=== PATIENT | female | born 2000 | race Caucasian/White ===

== ENCOUNTER 2023-11-25 15:50 | Inpatient (IN) | payer OTHER, SELFPAY ==
[2023-11-25] VITALS (13 sets, daily range): BP systolic 116–152; BP diastolic 66–94; PULSE 79–91; RESP 18; TEMP 36.6–36.8; BMI 39.1
[2023-11-25 16:52] LABS: Basophils Percent Auto 0.3 % (0.2-1.2); Eosinophils Absolute Auto 0.1 K/mm3 (0-0.3); Eosinophils Percent Auto 0.6 % (0-4.4); Hematocrit 32.1 % (37.0-47.0); Hemoglobin 10.4 g/dL (12.0-15.0); Immature Granulocyte Absolute 0.06 K/mm3 (0.00-0.031); Immature Granulocyte Percent A 0.5 % (0-0.5); Lymphocytes Absolute Auto 1.83 K/mm3 (0.9-3.2); Lymphocytes Percent Auto 14.5 % (18.3-44.2); Mean Corpuscular HGB Conc 32.4 g/dl (32-36); Mean Corpuscular Volume 89.4 fl (80-100); Monocytes Absolute Auto 0.6 K/mm3 (0.1-0.6); Monocytes Percent Auto 4.9 % (2.6-8.5); Neutrophils Percent Auto 79.2 % (45.5-73.1); Platelet Count Result 217 k/mm3 (150-375); Red Blood Count 3.59 M/mm3 (4.2-5.4); Red Cell Distribution Width 13.1 % (11.5-14.5); White Blood Count 12.6 K/mm3 (4.5-10.0)
--- NOTE | 2023-11-25 16:53 | LDADM ---
This patient, Tejal Acevedo, was admitted to Labor/Delivery/Recovery 108 on 11/25/23 at 15:50. Plans for labor, pain management and were discussed with patient. Patient/family oriented to hospital policies and general routines including ID bracelet, bed and alarms, visiting hours, pain management, procedures, bathroom and other care routines, personal items, smoking policy, room service/diet and guest tray routines, infant security routines, and visiting hours. Patient/Family are encouraged to report perceived risks to care and to ask questions if they do not understand what they are told or what they should do. See OBIX for further documentation.
[2023-11-25] MEDS: DINOPROSTONE 10 MG VAG INSERT VAGINAL (17:13)
[2023-11-25 17:49] LABS: HIV 1/2 Ab P24 Ag Result Negative (Negative)
[2023-11-25 18:22] LABS: Rapid Plasma Reagin Non-Reactive (NonReactive)
--- NOTE | 2023-11-25 19:44 | WPDANESEPP ---
Anes - Eval Pre Procedure Procedure: Labor Epidural Date/Time: 11/25/23 19:44 Surgeon: Vanessa Preop Diagnosis: Labor Pain Pre Op Diagnosis: Induction of Labor Patient Data Age: 23 Gender: F Height: 1.68 m Weight: 110 kg Last Vital Signs Temp 36.6 C 11/25/23 17:00 Pulse 81 11/25/23 19:30 Resp 18 11/25/23 17:00 BP 116/94 H 11/25/23 19:30 O2 Del Method Room Air 11/25/23 16:52 Allergies Allergy/AdvReac Type Severity Reaction Status Date / Time No Known Allergies Allergy Verified 11/18/23 15:33 Home Medications Medication Instructions Recorded Confirmed Type vits no.126-ferrous fum 1 tablet PO DAILY 11/18/23 11/18/23 History 28 mg iron-folic acid 800 mcg tablet (Classic ) Laboratory Tests 11/25/23 16:24 WBC 12.6 H K/mm3 (4.5-10.0) RBC 3.59 L M/mm3 (4.2-5.4) Hgb 10.4 L g/dL (12.0-15.0) Hct 32.1 L % (37.0-47.0) MCV 89.4 fl (80-100) MCH 29.0 pg (26-34) MCHC 32.4 g/dl (32-36) RDW 13.1 % (11.5-14.5) Plt Count 217 k/mm3 (150-375) MPV 10.0 fl (7.4-10.4) Immature Gran % (Auto) 0.5 % (0-0.5) Neut % (Auto) 79.2 H % (45.5-73.1) Lymph % (Auto) 14.5 L % (18.3-44.2) [place] % (Auto) 4.9 % (2.6-8.5) Eos % (Auto) 0.6 % (0-4.4) Baso % (Auto) 0.3 % (0.2-1.2) Lymph # (Auto) 1.83 K/mm3 (0.9-3.2) [place] # (Auto) 0.6 K/mm3 (0.1-0.6) Eos # (Auto) 0.1 K/mm3 (0-0.3) Baso # (Auto) 0.0 K/mm3 (0.0-0.1) Abs Immat Gran (auto) 0.06 H K/mm3 (0.00-0.031) Absolute Neuts (auto) 10.0 H K/mm3 (1.3-6.7) Absolute Nucleated RBC 0.000 K/mm3 (0.0-0.012) Nucleated RBC % 0.0 % (0.0-0.2) RPR Non-reactive (NonReactive) HIV 1&2 Ab/P24 Ag 4thGn Negative (Negative) Blood Type O Positive Antibody Screen Negative : gestational age (TORO 12/16/23, ) Patient hx anesthesia problems: none Family hx anesthesia problems: none Results Review: All pre-operative results and documents have been reviewed as part of the pre-operative evaluation. [facility] Family History Family History Other No pertinent family history No pertinent past psychiatric history Social History Social History Smoking status: Never smoker Substance use: never Do You Feel Safe in your Home?: Yes Lack of Transportation: No Lack of Food: Never True Current Housing: I Have Housing Concerned About Future Housing: No Difficulty Paying Gas/Electric Bills: No Difficulty Paying for Meds: No Currently Unemployed: No Education: Trade/Vocational Certificate Difficulty w/ Childcare or Family Care: No Spiritual care concerns: No Exam Day of Procedure 11/25/23 19:44 Patient weight: normal Heart: regular rate and rhythm Lungs: normal air movement Airway: Mallampati scale class II Neurological: alert and oriented
[2023-11-26] VITALS (150 sets, daily range): BP systolic 91–145; BP diastolic 40–112; PULSE 63–296; RESP 18–20; TEMP 36.5–37.5; O2SAT 93–100
--- NOTE | 2023-11-26 00:03 | PM.IMHP ---
H&P: HPI History of Present Illness Date/Time: 11/26/23 00:03 Chief Complaint: Growth restriction an oligo hydramnios at 37 weeks Narrative: 23-year-old para 0 last menstrual period was 01/29/2023, EDC the 2023, confirmed by 8 week ultrasound presents at 37 weeks gestation secondary to low fluid and decreased growth. The patient had a routine 37 week 2 ultrasound which showed baby to be less than 10th percentile with oligohydramnios. Her fundal heights have been showing good growth of this with this was apprised. In later of these finding she is admitted for induction of labor. Group B strep screen was done today and assess pending and she will be treated prophylactically PMFSH Family History Family History Other No pertinent family history No pertinent past psychiatric history Social History Social History Smoking status: Never smoker Substance use: never Do You Feel Safe in your Home?: Yes Lack of Transportation: No Lack of Food: Never True Current Housing: I Have Housing Concerned About Future Housing: No Difficulty Paying Gas/Electric Bills: No Difficulty Paying for Meds: No Currently Unemployed: No Education: Trade/Vocational Certificate Difficulty w/ Childcare or Family Care: No Spiritual care concerns: No Meds Home Medications and Allergies Home Medications Medication Instructions Recorded Confirmed Type vits no.126-ferrous fum 1 tablet PO DAILY 11/18/23 11/18/23 History 28 mg iron-folic acid 800 mcg tablet (Classic ) Allergies Allergy/AdvReac Type Severity Reaction Status Date / Time No Known Allergies Allergy Verified 11/18/23 15:33 Vital Signs Vital Signs - 24 hr 11/25/23 16:52 11/25/23 16:58 11/25/23 17:32 Temperature Pulse Rate 91 89 Respiratory Rate Blood Pressure 142/79 H 129/68 Oxygen Delivery Room Air 11/25/23 17:45 11/25/23 17:00 11/25/23 18:00 Temperature 98 F Pulse Rate 81 87 Respiratory Rate 18 Blood Pressure 130/71 140/71 Oxygen Delivery 11/25/23 18:15 11/25/23 18:30 11/25/23 18:45 Temperature Pulse Rate 88 85 90 Respiratory Rate Blood Pressure 131/66 135/76 137/72 Oxygen Delivery 11/25/23 19:00 11/25/23 19:15 11/25/23 19:30 Temperature Pulse Rate 83 79 81 Respiratory Rate Blood Pressure 133/79 152/75 H 116/94 H Oxygen Delivery 11/25/23 19:45 11/25/23 20:00 Temperature 98.3 F Pulse Rate 83 Respiratory Rate Blood Pressure 130/73 Oxygen Delivery Exam Const: General: cooperative, healthy appearing and comfortable Nutritional Appearance: overweight Orientation/consciousness: oriented to person, oriented to place and oriented to time Resp: Effort & Inspection: normal respiratory effort Cardio: Rate: regular rate Rhythm: regular rhythm Heart sounds: S1 normal heart sound present and S2 normal heart sound present GI: Inspection: normal to inspection ( soft gravid uterus) : External Female Exam: normal external appearance Speculum Exam - Vagina: normal appearance of the vagina Speculum Exam - Cervix: normal appearance of the cervix H&P: Results Labs Labs: Short CBC 11/25/23 Range/Units 16:24 WBC 12.6 H (4.5-10.0) K/mm3 Hgb 10.4 L (12.0-15.0) g/dL Hct 32.1 L (37.0-47.0) % Plt Count 217 (150-375) k/mm3 Assessment and Plan Assessment and plan (1) Term : Code(s): Z34.90 - Encounter for supervision of normal , unspecified, unspecified trimester Status: Acute (2) IUGR (intrauterine growth restriction): Status: Acute (3) Oligohydramnios: Code(s): O41.00X0 - Oligohydramnios, unspecified trimester, not applicable or unspecified Status: Acute Assessment and Plan: induction of labor. Spontaneous vaginal delivery expected.
[2023-11-26] MEDS: LACTATED RINGERS 1,000 ML 125 ML IV CONT ×3 (05:11→14:29)
[2023-11-26] MEDS: OXYTOCIN 30 UNITS/NS 500 ML 30 UNITS/500 ML BAG 6 UNITS IV CONT (05:11)
--- NOTE | 2023-11-26 06:10 | PM.OBPNLAB ---
Pain Control Date/time seen: 11/26/23 06:10 Pain control: tolerating well Pelvic Exam Dilation (cm): 2 Effacement (%): 50 station: -2 Amniotic membrane status: Leaking Contractions Monitor mode: External Contraction frequency: 3
--- NOTE | 2023-11-26 11:00 | WPDANESEPP ---
Anes - Eval Pre Procedure Procedure: Labor epidural Date/Time: 11/26/23 11:00 Surgeon: Dyana Martinez Preop Diagnosis: Pain during labor Pre Op Diagnosis: Induction of Labor Patient Data Age: 23 Gender: F Height: 1.68 m Weight: 110 kg Last Vital Signs Temp 36.9 C 11/26/23 04:34 Pulse 80 11/26/23 10:46 Resp 18 11/25/23 17:00 BP 132/70 11/26/23 10:46 O2 Del Method Room Air 11/25/23 16:52 Allergies Allergy/AdvReac Type Severity Reaction Status Date / Time No Known Allergies Allergy Verified 11/18/23 15:33 Home Medications Medication Instructions Recorded Confirmed Type vits no.126-ferrous fum 1 tablet PO DAILY 11/18/23 11/18/23 History 28 mg iron-folic acid 800 mcg tablet (Classic ) Laboratory Tests 11/25/23 16:24 WBC 12.6 H K/mm3 (4.5-10.0) RBC 3.59 L M/mm3 (4.2-5.4) Hgb 10.4 L g/dL (12.0-15.0) Hct 32.1 L % (37.0-47.0) MCV 89.4 fl (80-100) MCH 29.0 pg (26-34) MCHC 32.4 g/dl (32-36) RDW 13.1 % (11.5-14.5) Plt Count 217 k/mm3 (150-375) MPV 10.0 fl (7.4-10.4) Immature Gran % (Auto) 0.5 % (0-0.5) Neut % (Auto) 79.2 H % (45.5-73.1) Lymph % (Auto) 14.5 L % (18.3-44.2) [place] % (Auto) 4.9 % (2.6-8.5) Eos % (Auto) 0.6 % (0-4.4) Baso % (Auto) 0.3 % (0.2-1.2) Lymph # (Auto) 1.83 K/mm3 (0.9-3.2) [place] # (Auto) 0.6 K/mm3 (0.1-0.6) Eos # (Auto) 0.1 K/mm3 (0-0.3) Baso # (Auto) 0.0 K/mm3 (0.0-0.1) Abs Immat Gran (auto) 0.06 H K/mm3 (0.00-0.031) Absolute Neuts (auto) 10.0 H K/mm3 (1.3-6.7) Absolute Nucleated RBC 0.000 K/mm3 (0.0-0.012) Nucleated RBC % 0.0 % (0.0-0.2) RPR Non-reactive (NonReactive) HIV 1&2 Ab/P24 Ag 4thGn Negative (Negative) Blood Type O Positive Antibody Screen Negative : gestational age (TORO 12/16/23, ) Patient hx anesthesia problems: none Family hx anesthesia problems: none Results Review: All pre-operative results and documents have been reviewed as part of the pre-operative evaluation. [facility] Family History Family History Other No pertinent family history No pertinent past psychiatric history Social History Social History Smoking status: Never smoker Substance use: never Do You Feel Safe in your Home?: Yes Lack of Transportation: No Lack of Food: Never True Current Housing: I Have Housing Concerned About Future Housing: No Difficulty Paying Gas/Electric Bills: No Difficulty Paying for Meds: No Currently Unemployed: No Education: Trade/Vocational Certificate Difficulty w/ Childcare or Family Care: No Spiritual care concerns: No Exam Day of Procedure 11/26/23 11:00 Patient weight: obese Heart: regular rate and rhythm Lungs: clear to auscultation Airway: Mallampati scale Neurological: alert and oriented
--- NOTE | 2023-11-26 11:52 | PM.OBPNLAB ---
Pain Control Date/time seen: 11/26/23 11:52 Pain control: tolerating well Pelvic Exam Dilation (cm): 3 Effacement (%): 70 station: -2 Amniotic membrane status: Leaking Contractions Monitor mode: External Contraction frequency: 3
[2023-11-26] MEDS: SODIUM CHLORIDE 0.9% IV 300 ML 600 ML I-UTERINE (16:46)
--- NOTE | 2023-11-26 17:37 | P.PCNOB_ITS ---
OB - Vaginal Delivery Note Procedure Delivery date: 11/26/23 Events: Intrauterine Growth Restriction (IUGR) and Oligohydramnios Induction method: Per Cervidil Protocol Delivery augmentation: Rupture of Membranes and Pitocin Delivery monitor: External FHT, External Uterine, Internal FHT and Internal Uterine Route of delivery: Episiotomy description: None Laceration Description: None Quantitative Blood Loss (ml): 61 Anesthesia type: Epidural Disposition: Floor Complications: No immediate complications Narrative: Patient was admitted on 11/25 23. Cervidil was placed and she is spontaneously delivered on 11/26/2023. And she was complete she pushed delivered the head spontaneously in the ARABELLA position. Anterior posterior shoulder delivered spontaneously. Cord clamped x2 cut. placed warmer given Apgars of 7 [id number] made 5minutes. Cord blood was drawn. Placenta delivered intact spontaneously. Twenty of Pitocin placed IV to help firm the uterus. The lateral sidewalls and perineum appeared intact. Blood loss was estimated at61cc. There were no complications and pediatricians were on-site [place] Baby Date of : 11/26/23 Time of : 17:19 Gestational Age by Date: 37 Infant gender: Female presentation: vertex position: Right Occiput Anterior Placenta delivery description: Spontaneous Cord Vessel Description: 3 Vessels, Nuchal Cord, Loose and Reduced score one minute: 7 score five minutes: 9
--- NOTE | 2023-11-26 17:39 | PM.DS ---
DS: Admitting Diagnosis Discharge Date 11/28/2023 Admitting Diagnosis IUGR and oligohydramnios at 37 weeks DS: Discharge Diagnosis Discharge Diagnosis (1) Oligohydramnios: Code(s): O41.00X0 - Oligohydramnios, unspecified trimester, not applicable or unspecified Status: Acute (2) IUGR (intrauterine growth restriction): Status: Acute (3) Term : Code(s): Z34.90 - Encounter for supervision of normal , unspecified, unspecified trimester Status: Acute DS: Summary Hospital Course Reason for hospitalization: this 23-year-old female was admitted for induction of labor at 37 weeks secondary to oligohydramnios and IUGR Hospital Course: patient underwent spontaneous vaginal delivery on 11/25/2024 at 5:19 p.m.. She remained afebrile. She was up, voiding without difficulty, eating regular diet, ambulating, and generally without complaints. Time Spent with Patient Time attestation: Total time spent providing and/or coordinating discharge services: Exam Const: General: cooperative, healthy appearing and comfortable Nutritional Appearance: average body habitus Orientation/consciousness: oriented to person, oriented to place and oriented to time Resp: Effort & Inspection: normal respiratory effort Cardio: Rate: regular rate Rhythm: regular rhythm Heart sounds: S1 normal heart sound present and S2 normal heart sound present GI: Inspection: normal to inspection DS: Data Data Completed and Pending Labs on day of discharge: Labs from last 24 hours 11/25/23 16:24 RPR Non-reactive HIV 1&2 Ab/P24 Ag 4thGn Negative Blood Type O Positive Antibody Screen Negative Discharge Plan Discharge Attending physician on discharge: Derrell Altamirano Discharging Clinician: Derrell Altamirano Patient Disposition: Home, Self-Care Activity: may shower and pelvic rest Diet: heart healthy Wound Care Instructions: follow printed instructions Patient Instructions: Antibiotic Form Stand Alone Forms: General Discharge Information Follow-up/Referrals: Derrell Altamirano MD [Physician] - Discharge Medications: Continued Classic 28 mg iron- 800 mcg Tablet 1 tablet PO DAILY Date of admission: 11/25/23 15:50 Primary Care Provider: Bk Hewitt Admitting Provider: Derrell Altamirano Attending physician on admission: Derrell Altamirano Condition: Stable
[2023-11-26] MEDS: OXYTOCIN 30 UNITS/NS 500 ML 30 UNITS/500 ML BAG 125 UNITS IV CONT (17:41)
--- NOTE | 2023-11-27 04:45 | PM.OBPNVD ---
OB - PN: Subj Subjective Date/time seen: 11/27/23 04:45 Patient comments: no complaints and pain well controlled baby status: doing well OB - PN: Obj Data Labs 11/25/23 16:24 OB - PN A/P Plan day: 1 Plan: routine care Time Spent With Patient Time: Total time spent is greater than 50% in coordination of care (as documented) at patient's floor/unit and/or counseling patient: Time with patient: less than 15 minutes Exam Const: General: cooperative, healthy appearing and comfortable Nutritional Appearance: average body habitus Orientation/consciousness: oriented to person, oriented to place and oriented to time Resp: Effort & Inspection: normal respiratory effort Cardio: Rate: regular rate Rhythm: regular rhythm Heart sounds: S1 normal heart sound present and S2 normal heart sound present GI: Inspection: normal to inspection
[2023-11-27 05:25] LABS: Hematocrit 37.8 % (37.0-47.0); Hemoglobin 12.1 g/dL (12.0-15.0)
[2023-11-27] MEDS: MULTIVIT/MIN/PREN/FOL AC/IRON TABLET 1 TAB PO (07:03)
[2023-11-27 08:40] VITALS: BP 124/65; PULSE 84; RESP 18; TEMP 36.6; O2SAT 100
[2023-11-27 12:12] VITALS: BP 124/66; PULSE 78; RESP 16; TEMP 36.8; O2SAT 100
--- NOTE | 2023-11-27 12:55 | WPDANLDPN2 ---
Anes-Prog Note L&D Date/Time: 11/27/23 12:55 Neuro status: Neuro function grossly intact. Vital Signs: Last Vital Signs Temp 36.8 C 11/27/23 12:12 Pulse 78 11/27/23 12:12 Resp 16 11/27/23 12:12 BP 124/66 11/27/23 12:12 Pulse Ox 100 11/27/23 12:12 O2 Del Method Room Air 11/25/23 16:52 Pain score (VAS): 0 I/O: Intake & Output 11/26/23 11/27/23 11/27/23 23:59 07:59 15:59 Intake Total 500 Output Total 61 Balance 439 Patient feedback: Patient satisfied with anesthetic care.
[2023-11-27 19:05] VITALS: BP 125/71; PULSE 90; RESP 18; TEMP 36.9; O2SAT 100
--- NOTE | 2023-11-28 05:31 | PM.OBPNVD ---
OB - PN: Subj Subjective Date/time seen: 11/28/23 05:31 Patient comments: no complaints and pain well controlled baby status: doing well OB - PN: Obj Data Labs 11/27/23 03:38 OB - PN A/P Plan day: 1 Plan: routine care Time Spent With Patient Time: Total time spent is greater than 50% in coordination of care (as documented) at patient's floor/unit and/or counseling patient: Time with patient: less than 15 minutes Exam Const: General: cooperative, healthy appearing and comfortable Orientation/consciousness: oriented to person, oriented to place and oriented to time Resp: Effort & Inspection: normal respiratory effort Cardio: Rate: regular rate Rhythm: regular rhythm Heart sounds: S1 normal heart sound present and S2 normal heart sound present GI: Inspection: normal to inspection
[2023-11-28 08:00] VITALS: PULSE 81; RESP 16; O2SAT 98
[2023-11-28 08:15] VITALS: BP 104/70; PULSE 81; RESP 16; TEMP 37.1; O2SAT 98
[2023-11-28] MEDS: MULTIVIT/MIN/PREN/FOL AC/IRON TABLET 1 TAB PO (08:46)
--- NOTE | 2023-11-28 10:29 | PC.NURSE ---
Instructions given on cleaning, care, usage, that there should be no pain, pumping schedule for milk production, collection, and storage of human milk. Patient was assessed for correct placement, flange size, to pump for comfort and nipple stretching/stimulation for adequate milk production every 3 hours (8 times in 24 hours) 1-2 times at night. Parents are encouraged to record the pumping schedule on the feeding sheet.?Mother voiced understanding of the education shared along with mom/baby guide and the pump measurement, flange fit handout for additional resource information. Reported to the Primary RN.
--- NOTE | 2023-11-28 10:50 | PC.NURSE ---
Called to patient room to attempt to latch infant. Mother has been pumping until this point but would like to try nursing infant. Nipple shield used to promote optimal latch. Infant latched successfully and is nursing well. is eager at the breast. Mother shows excitement for her ability to latch infant with breast shield independently. Mother verbalized understanding that she can call this RN with any remaining questions or concerns. No pain noted at this time.
[2023-12-01 11:44] VITALS: BP 128/84; PULSE 82; RESP 16; TEMP 36.7; O2SAT 100
== END 2023-11-28 19:40 | disposition home or self-care (01) | DRG 807 ==
LOC: ANHLDR 11-26 17:41 → ANHOB2 11-26 20:48
PROVIDERS: Admitting Provider Obstetrics & Gynecology; PCP Family Medicine Adolescent Medicine; Visit Provider Obstetrics & Gynecology
DX: O41.03X0 Oligohydramnios, third trimester, not applicable or unspecified (principal); Z37.0 Single live birth; Z3A.37 37 weeks gestation of pregnancy; O36.5930 Maternal care for other known or suspected poor fetal growth, third trimester, not applicable or unspecified; O69.81X0 Labor and delivery complicated by cord around neck, without compression, not applicable or unspecified
CPT/HCPCS: 36415; 85014; 85018; 85025; 86592; 86703; 86850; 86900; 86901; A9270; G0432; J2590; J2795; J7030; J7120